=== PATIENT | male | born 1955 | race Caucasian/White ===

== ENCOUNTER 2022-10-30 19:20 | Inpatient (IN) | payer MEDICARE, SELFPAY ==
[2022-10-30 19:25] VITALS: BP 146/71; PULSE 60; RESP 16; TEMP 36.7; O2SAT 97
[2022-10-30] MEDS: traZODone HCL 50 MG TABLET PO (22:18)
[2022-10-30] MEDS: Mirtazapine 30 MG TABLET PO (22:18)
[2022-10-30] MEDS: clonazePAM 1 MG TABLET PO (22:18)
[2022-10-30] MEDS: QUEtiapine Fumarate 25 MG TABLET PO (22:18)
--- NOTE | 2022-10-30 22:37 | PC.ADMIT ---
PT is a 67 year old Emirati speaking white male that arrived on this unit at 19:25 via stretcher from [facility]. PT was placed on 15 minute checks. Legal Status: conditional voluntary. PT presented to [facility] 2 days after leaving [facility]. PT reports feeling increased depression and suicidal ideation and recently relapsed on substances. PT lives with is adult son who is an active substance user and was just sent away on a section 35. PT lost his of 46 years approximately 2 years ago and has been struggling with how to deal with his grief in a healthy manner. PT denies current SI/HI, AH/VH and feels safe on unit. Safety tool and treatment plan completed. VS stable and is exhibiting no signs of substance withdrawal at this time.
[2022-10-31 06:00] VITALS: BP 140/66; PULSE 56; RESP 18; TEMP 36.3; O2SAT 98
[2022-10-31] MEDS: Atorvastatin Calcium 80 MG TABLET PO (09:09)
[2022-10-31] MEDS: Aspirin Enteric Coated 81 MG TABLET.DR PO (09:09)
[2022-10-31] MEDS: buPROPion HCl XL 300 MG TAB.ER.24H PO (09:09)
[2022-10-31] MEDS: lisinopriL 40 MG TABLET PO (09:10)
[2022-10-31] MEDS: clonazePAM 1 MG TABLET PO (09:10)
[2022-10-31 09:29] LABS: Cholesterol 95 mg/dL; HDL Cholesterol 44 mg/dL; LDL Cholesterol Calculated 42 mg/dl; Magnesium 2.3 mg/dL (1.6-2.6); Triglycerides 45 mg/dL
[2022-10-31 09:49] LABS: Folate 12.1 ng/mL (> or = 4.0); Free T4 (Free Thyroxine) 0.79 ng/dL (0.71-1.85); Thyroid Stimulating Hormone 2.26 uIU/mL (0.32-4.0); Vitamin B12 490 pg/mL (200-900)
--- NOTE | 2022-10-31 10:00 | HO.PSYADMNOT ---
HPI Date of Service: 10/31/22 Chief Complaint: Depression, SI, Polysubstance abuse d/o Sources of Information: patient interviewed, chart reviewed and crisis/core team assessment reviewed HPI Subjective Notes: Sánchez Warning and Conditional Voluntary Narrative: pt is a 67 yo , with hx of past substance abuse, depression, Afib (?), who presents for worsening depression in face of relapse and recent 2 year anniversary of wifes . Pt for 47 years and enjoyed a close relationship with his ; he was sober for 32 years, attending AA. Patients 2 years ago and since then he's been depressed, feeling lost without her and having a hard time making plans for future. Pt relapsed with alcohol and then crack cocaine, now mostly daily and fentyl 1/week. Pt went to detox 1.5 weeks ago; when he got out this week, he got home and his son, with severe substance abuse issues, was having a partying at his home, during which time patient again relapsed. His depression worsened and he felt suicidal, called his PCP who encouraged him to present for psych eval. Past Psychiatric History: No inpatient admission hx of detox no hx of suicide attempts meds: Buproprion XL 300mg for about 1 year Mirazapine 30mg for about 1 month Celexa, recently started Seroquel at bedtime Medical Evaluation Reviewed: Hospitalist Halieal Pending [facility] Medical History (Updated 11/01/22 @ 09:05 by Jesu Tadeo MD) Alcohol use disorder in remission BPH (benign prostatic hyperplasia) Cocaine use disorder Erectile dysfunction History of alcohol use disorder History of seizure due to alcohol withdrawal Hyperlipidemia Hypertension Opioid use disorder Paroxysmal atrial fibrillation Polysubstance abuse Family History: son: substance abuse Maternal family: extensive substance abuse Social History: for 47 years; for past 2 years lives in own home 6 children and 7 grandkids; family supportive youngest son currently struggling with substance abuse Substance History: hx of substance abuse, alcoholism, sober for 32 years; relapsed 2 years ago after . Detox September 2022 currently using alcohol (none for 2 weeks), cocaine daily, fentanyl 1/week Trauma History: deferred Diagnostics Vital Signs (24Hr): Vital Signs - 24 hr 10/30/22 19:25 10/31/22 06:00 Temperature 98.1 F 97.4 F Pulse Rate 60 56 Respiratory Rate 16 18 Blood Pressure 146/71 H 140/66 H Pulse Oximetry 97 98 Oxygen Delivery Method Room Air Labs Labs: Laboratory Results - last 48 hr 10/31/22 10/31/22 08:07 08:07 Magnesium 2.3 Triglycerides 45 Cholesterol 95 LDL Cholesterol, Calc 42 HDL Cholesterol 44 Vitamin B12 490 Folate 12.1 TSH 2.26 Free T4 0.79 Meds/Allergies Meds Home Medications Medication Instructions Recorded Confirmed Type aspirin 81 mg tablet,delayed 81 mg PO DAILY 10/30/22 10/30/22 History release atorvastatin 80 mg tablet 80 mg PO QAM 10/30/22 10/30/22 History bupropion HCl 300 mg 24 hr tablet, 300 mg PO QAM 10/30/22 10/30/22 History extended release citalopram 20 mg tablet 20 mg PO DAILY 10/30/22 10/30/22 History clonazepam 1 mg tablet 1 mg PO BID 10/30/22 10/30/22 History lisinopril 40 mg tablet 40 mg PO QAM 10/30/22 10/30/22 History mirtazapine 30 mg tablet 30 mg PO BEDTIME 10/30/22 10/30/22 History quetiapine 25 mg tablet 25 mg PO BEDTIME 10/30/22 10/30/22 History trazodone 50 mg tablet 50 mg PO BEDTIME 10/30/22 10/30/22 History sennosides 8.6 mg tablet (senna) 17.2 mg PO BEDTIME PRN Constipation 10/31/22 10/31/22 History Allergies Allergies Allergy/AdvReac Type Severity Reaction Status Date / Time No Known Allergies Allergy Verified 10/30/22 15:32 Mental Status Exam Mental Status Exam Narrative: Pt is alert and oriented; behavior is cooperative, friendly and calm; patient is not in distress; dressed in hospital attire with unkempt hair, scruffy agudelo; mood is described as depressed and affect congruent; eye contact appropriate; Speech is normal rate, volume and prosody and not pressured; no psychomotor agitation/retardation present; thought process is organized and goal directed; Thought content is on , hopelessness, overcoming addiction, treatment; otherwise pertinent to relevant topics and without any delusional content, paranoid ideations or grandiosity; denies any SI/HI. There is no evidence of perceptual disturbance. Patients insight and judgment impaired Assessment & Plan Assessment & Plan (1) MDD (major depressive disorder), recurrent episode, severe: Status: Acute Code(s): F33.2 - Major depressive disorder, recurrent severe without psychotic features (2) Alcohol use disorder in remission: Status: Acute Code(s): F10.91 - Alcohol use, unspecified, in remission (3) Cocaine use disorder: Status: Acute Code(s): F14.10 - Cocaine abuse, uncomplicated (4) Opioid use disorder: Status: Acute Code(s): F11.90 - Opioid use, unspecified, uncomplicated Plan pt is a 67 yo , with hx of past substance abuse, depression, Afib (?), who presents for worsening depression in face of relapse and recent 2 year anniversary of wifes . -depression and substance abuse -will increase Wellbutrin and dc citalopram (due to polypharm); pt does not want maintenance medication PLAN: CV q15 min checks Increase Wellbutrin XL to 450mg continue Mirtazapine 30mg qhs stop Citalopram; already on 2 antidepressants and not at max doses Lower Clonazepam to 0.5mg TID; discussed how this is problematic for depression and substance abuse; he agrees to lower discussed therapeutic options, such as therapy, AA, bereavement group therapy reviewed labs and lytes, bun/cr, CBC, CA WnL Patient educated on: diagnosis, medication risk/benefits, substance abuse and therapeutic strategies Informed Consent: understands Reason for continued inpatient stay Substantial Risk for: rapid decompensation Statement Statement: I have reviewed the history and physical and performed a pertinent examination on my patient. No changes have occurred unless specified. If the History and Physical was not performed prior to admission, the Hospitalist's service will be consulted for completing the admission physical. Time Spent With Patient Time: Total time managing care of this patient today ____ minutes.
--- NOTE | 2022-10-31 12:08 | HO.PM.IMCN ---
History of Present Illness Data of Consult Service Date: 10/31/22 Requesting physician: Hope Campos Primary Care Provider: Xin WATERS Reason for consult: medical H&P 67 year old male with history hyperlipidemia, hypertension, adrenal nodule, rectal dysfunction, seizure, polysubstance abuse, alcohol use disorder, BPH, paroxysmal atrial fibrillation not on anticoagulation admitted to Psychiatry from [facility] with consult placed hospitalist service for medical H and P. I did attempt to meet with the patient on multiple occasions and patient was unavailable. However, reviewed chart from [facility]. The patient did test positive for cocaine and fentanyl on urine drug screen. There was a mild normocytic anemia with H/H of 10.8/33%. EKG was reassuring showing normal sinus rhythm, rate 67 with incomplete right bundle branch block. Review of Systems Review of Systems: Pt unavailable for review of systems [facility] Medical History (Updated 10/31/22 @ 13:55 by WENDY Greene) BPH (benign prostatic hyperplasia) Erectile dysfunction History of alcohol use disorder History of seizure due to alcohol withdrawal Hyperlipidemia Hypertension Paroxysmal atrial fibrillation Polysubstance abuse Family History (Updated 10/31/22 @ 13:55 by WENDY Greene) Father Alcohol use disorder Social History Household Members: Children Household Members Other:: 1 son Housing: House Do you presently have visiting nurse or other home services: No Patient Tobacco Use Status: Former Tobacco user Quit Date: 1997 Tobacco use type: Cigarette Smoked in Last 30 Days: No e-Cigarette/Vaping Use: Never Used Use of substances other than those prescribed or required for medical reasons: Yes Substance Use Type: Crack/Cocaine, Marijuana and Opiates Substance Use Frequency: Recent Binge Last Used Substance: Just Prior to Admission Currently Displaying Signs/Symptoms of Drug Intoxication Withdrawal: No Any prior treatment program specific to substance use: Yes Have you been hit, kicked, punched, or otherwise hurt by someone within the past year? If so, by whom?: No Do you feel safe in your current relationship?: No Current Relationship Is there a partner from a previous relationship who is making you feel unsafe now?: No Jehovah'S Witness Healthcare Practices: Sikh Advance Directives: No Advance Directives Information Provided: Yes Do you have thoughts of harming others: None Do you have a plan to hurt others: No Plan Recently lost weight without trying: No Nutrition Risks: No Nutritional Risk Meds Allergies Allergy/AdvReac Type Severity Reaction Status Date / Time No Known Allergies Allergy Verified 10/30/22 15:32 Active Medications: Current Medications Acetaminophen (Acetaminophen 325 Mg Tablet) 650 mg PO Q6H PRN PRN Reason: Headache/Pain Mild Scale (1-3) Al Hydroxide/Mg Hydroxide (Magnesium Hydrox/Alum Hydrox 30 Ml Oral.Susp) 30 ml PO Q6H PRN PRN Reason: Heartburn/Nausea Aspirin (Aspirin Enteric Coated 81 Mg Tablet.Dr) 81 mg PO DAILY [facility] Last Admin: 10/31/22 09:09 Dose: 81 mg Atorvastatin Calcium (Atorvastatin Calcium 80 Mg Tablet) 80 mg PO DAILY [facility] Last Admin: 10/31/22 09:09 Dose: 80 mg Bupropion HCl (Bupropion Hcl Xl 150 Mg Tab.Er.24h) 450 mg PO DAILY [facility] Clonazepam (Clonazepam 0.5 Mg Tablet) 0.5 mg PO TID [facility] Hydroxyzine HCl (Hydroxyzine Hcl 25 Mg Tablet) 25 mg PO Q6H PRN PRN Reason: Anxiety Lisinopril (Lisinopril 40 Mg Tablet) 40 mg PO DAILY [facility]; Protocol Last Admin: 10/31/22 09:10 Dose: 40 mg Magnesium Hydroxide (Milk Of Magnesia 30 Ml Oral.Susp) 30 ml PO DAILY PRN PRN Reason: Constipation Mirtazapine (Mirtazapine 30 Mg Tablet) 30 mg PO BEDTIME [facility] Last Admin: 10/30/22 22:18 Dose: 30 mg Trazodone HCl (Trazodone Hcl 50 Mg Tablet) 50 mg PO BEDTIME MRX1 PRN PRN Reason: Insomnia Last Admin: 10/30/22 22:18 Dose: 50 mg Home Medications Medication Instructions Recorded Confirmed Last Taken Type aspirin 81 mg tablet,delayed 81 mg PO DAILY 10/30/22 10/30/22 10/30/22 08:00 History release atorvastatin 80 mg tablet 80 mg PO [facility] 10/30/22 10/30/22 10/30/22 08:00 History 80 bupropion HCl 300 mg 24 hr tablet, 300 mg PO QAM 10/30/22 10/30/22 10/30/22 08:00 History extended release 300 citalopram 20 mg tablet 20 mg PO DAILY 10/30/22 10/30/22 10/30/22 08:00 History 20 mg clonazepam 1 mg tablet 1 mg PO BID 10/30/22 10/30/22 10/30/22 08:00 History 1 lisinopril 40 mg tablet 40 mg PO QAM 10/30/22 10/30/22 10/30/22 08:00 History 40 mirtazapine 30 mg tablet 30 mg PO BEDTIME 10/30/22 10/30/22 10/29/22 22:00 History 30 quetiapine 25 mg tablet 25 mg PO BEDTIME 10/30/22 10/30/22 10/29/22 22:00 History 25 trazodone 50 mg tablet 50 mg PO BEDTIME 10/30/22 10/30/22 10/29/22 22:00 History 50 Physical Exam Vital Signs and Narrative: Vital Signs: Last Vital Signs Temp 97.4 F 10/31/22 06:00 Pulse 56 10/31/22 06:00 Resp 18 10/31/22 06:00 BP 140/66 H 10/31/22 06:00 Pulse Ox 98 10/31/22 06:00 O2 Del Method Room Air 10/30/22 19:25 Pt unavailable for physical exam Results Labs Labs: Laboratory Results - last 24 hr 10/31/22 10/31/22 08:07 08:07 Magnesium 2.3 Triglycerides 45 Cholesterol 95 LDL Cholesterol, Calc 42 HDL Cholesterol 44 Vitamin B12 490 Folate 12.1 TSH 2.26 Free T4 0.79 Assessment and Plan (1) Routine medical exam: Status: Acute Plan 67 year old male with history hyperlipidemia, hypertension, adrenal nodule, erectile dysfunction, seizure, polysubstance abuse, alcohol use disorder, BPH, paroxysmal atrial fibrillation not on anticoagulation admitted to Psychiatry from [facility] with consult placed hospitalist service for medical H and P. #Mood disorder -plan per psychiatry #Polysubstance abuse -plan per psychiatry #Paroxysmal atrial fibrillation- rate controlled -[place] [facility] showed NSR, rate 67 wtih incomplete RBBB -[id number] 2- continue aspirin therapy -Not on rate control medication #HTN -BP reasonably controlled -continue lisinopril 40mg daily -monitor BP #HLD -continue statin #Chronic normocytic anemia -likely r/t chronic disease -H/H stable, above transfusion threshold [facility] chart was reviewed. Multiple attempts made to meet with patient who was unavailable. Thank you for allowing me to participate in this consult. Signing off at this time. Please do not hesitate to call for further questions or if patient does have any medical concerns. Time Spent With Patient Time: Total time managing care of this patient today ____ minutes.
[2022-10-31] MEDS: clonazePAM 0.5 MG TABLET PO ×2 (14:20→21:44)
[2022-10-31 20:56] VITALS: BP 125/62; PULSE 57; RESP 18; TEMP 36.4; O2SAT 97
[2022-10-31] MEDS: Mirtazapine 30 MG TABLET PO (21:44)
[2022-10-31] MEDS: traZODone HCL 50 MG TABLET PO (21:44)
[2022-10-31] MEDS: Sennosides 8.6 MG TABLET 17.2 MG PO (21:44)
[2022-11-01 08:00] VITALS: BP 134/63; PULSE 52; RESP 18; TEMP 35.8; O2SAT 98
[2022-11-01] MEDS: clonazePAM 0.5 MG TABLET PO ×3 (08:45→20:53)
[2022-11-01] MEDS: Atorvastatin Calcium 80 MG TABLET PO (08:46)
[2022-11-01] MEDS: lisinopriL 40 MG TABLET PO (08:46)
[2022-11-01] MEDS: Aspirin Enteric Coated 81 MG TABLET.DR PO (08:46)
[2022-11-01] MEDS: buPROPion HCl XL 150 MG TAB.ER.24H 450 MG PO (08:47)
--- NOTE | 2022-11-01 09:05 | P.PNPSI_ITS ---
Subjective Subjective Date of Service: 11/01/22 Reason For Visit: Depression, SI, Polysubstance abuse d/o Interim History: Met with patient; discussed with team Patient remains depressed, isolating and in bed however expressing gratitude for help received and that he is hopeful that increasing medication will make a difference. Patient did shave today and has improved hygiene. Patient talked about his feelings, the struggle he has had trying to navigate life without his and that he likely relapsed into substance abuse to avoid dealing with actually mourning his . He feels ready to do that now. Patient talked about his need to get back into a AA and be involved with others. He is anxious about his son and is worried his son will return to the house however he his son is currently committed to a Section 35. Patient experiencing some shame for relapse however processing these feelings Mental Status Exam Mental Status Exam Narrative: Pt is alert and oriented; behavior is cooperative, friendly and calm; patient is not in distress; dressed in hospital attire, clean shaven, improved hygiene; mood is described as depressed and affect congruent, downcast; eye contact appropriate; Speech is normal rate, volume and prosody and not pressured; no psychomotor agitation/retardation present; thought process is organized and goal directed; Thought content is on , hopelessness, overcoming addiction, treatment; otherwise pertinent to relevant topics and without any delusional content, paranoid ideations or grandiosity; denies any SI/HI. There is no evidence of perceptual disturbance. Patients insight and judgment impaired but improving. Diagnostics Vital Signs (24Hr): Vital Signs - 24 hr 10/31/22 20:56 Temperature 97.6 F Pulse Rate 57 Respiratory Rate 18 Blood Pressure 125/62 Pulse Oximetry 97 Oxygen Delivery Method Room Air Labs Labs: Laboratory Results - last 48 hr 10/31/22 10/31/22 08:07 08:07 Magnesium 2.3 Triglycerides 45 Cholesterol 95 LDL Cholesterol, Calc 42 HDL Cholesterol 44 Vitamin B12 490 Folate 12.1 TSH 2.26 Free T4 0.79 Medications Medications Current Medications Acetaminophen (Acetaminophen 325 Mg Tablet) 650 mg PO Q6H PRN PRN Reason: Headache/Pain Mild Scale (1-3) Al Hydroxide/Mg Hydroxide (Magnesium Hydrox/Alum Hydrox 30 Ml Oral.Susp) 30 ml PO Q6H PRN PRN Reason: Heartburn/Nausea Aspirin (Aspirin Enteric Coated 81 Mg Tablet.) 81 mg PO DAILY [facility] Last Admin: 11/01/22 08:46 Dose: 81 mg Atorvastatin Calcium (Atorvastatin Calcium 80 Mg Tablet) 80 mg PO DAILY [facility] Last Admin: 11/01/22 08:46 Dose: 80 mg Bupropion HCl (Bupropion Hcl Xl 150 Mg Tab.Er.24h) 450 mg PO DAILY [facility] Last Admin: 11/01/22 08:47 Dose: 450 mg Clonazepam (Clonazepam 0.5 Mg Tablet) 0.5 mg PO TID [facility] Last Admin: 11/01/22 08:45 Dose: 0.5 mg Hydroxyzine HCl (Hydroxyzine Hcl 25 Mg Tablet) 25 mg PO Q6H PRN PRN Reason: Anxiety Lisinopril (Lisinopril 40 Mg Tablet) 40 mg PO DAILY [facility]; Protocol Last Admin: 11/01/22 08:46 Dose: 40 mg Magnesium Hydroxide (Milk Of Magnesia 30 Ml Oral.Susp) 30 ml PO DAILY PRN PRN Reason: Constipation Mirtazapine (Mirtazapine 30 Mg Tablet) 30 mg PO BEDTIME [facility] Last Admin: 10/31/22 21:44 Dose: 30 mg Senna (Sennosides 8.6 Mg Tablet) 17.2 mg PO BEDTIME [facility] Last Admin: 10/31/22 21:44 Dose: 17.2 mg Trazodone HCl (Trazodone Hcl 50 Mg Tablet) 50 mg PO BEDTIME MRX1 PRN PRN Reason: Insomnia Last Admin: 10/31/22 21:44 Dose: 50 mg Allergies Allergies Allergy/AdvReac Type Severity Reaction Status Date / Time No Known Allergies Allergy Verified 10/30/22 15:32 Assessment & Plan Assessment & Plan (1) MDD (major depressive disorder), recurrent episode, severe: Status: Acute Code(s): F33.2 - Major depressive disorder, recurrent severe without psychotic features (2) Alcohol use disorder in remission: Status: Acute Code(s): F10.91 - Alcohol use, unspecified, in remission (3) Cocaine use disorder: Status: Acute Code(s): F14.10 - Cocaine abuse, uncomplicated (4) Opioid use disorder: Status: Acute Code(s): F11.90 - Opioid use, unspecified, uncomplicated Plan pt is a 67 yo , with hx of past substance abuse, depression, Afib (?), who presents for worsening depression in face of relapse and recent 2 year anniversary of wifes . -depression and substance abuse -will increase Wellbutrin and dc citalopram (due to polypharm); pt does not want maintenance medication Hospital course: 11/01 patient remains depressed; appreciates increase in medication. Starting to feel he is finally able to think about his life, missing his and how to move forward. PLAN: CV q15 min checks Continue Wellbutrin XL to 450mg continue Mirtazapine 30mg qhs stop Citalopram; already on 2 antidepressants and not at max doses Lower Clonazepam to 0.5mg TID; discussed how this is problematic for depression and substance abuse; he agrees to lower discussed therapeutic options, such as therapy, AA, bereavement group therapy reviewed labs and lytes, bun/cr, CBC, CA WnL Patient educated on: diagnosis, medication risk/benefits and substance abuse Informed Consent: understands Reason for continued inpatient stay Substantial Risk for: rapid decompensation Time Spent With Patient Time: Total time managing care of this patient today ____ minutes.
[2022-11-01 19:16] VITALS: BP 109/57; PULSE 62; TEMP 36.6
[2022-11-01] MEDS: Sennosides 8.6 MG TABLET 17.2 MG PO (20:53)
[2022-11-01] MEDS: traZODone HCL 50 MG TABLET PO (20:53)
[2022-11-01] MEDS: Mirtazapine 30 MG TABLET PO (20:53)
[2022-11-02 07:00] VITALS: BMI 26.9
[2022-11-02 08:00] VITALS: BP 124/68; PULSE 51; RESP 18; TEMP 36.3; O2SAT 99
[2022-11-02] MEDS: lisinopriL 40 MG TABLET PO (08:49)
[2022-11-02] MEDS: Atorvastatin Calcium 80 MG TABLET PO (08:49)
[2022-11-02] MEDS: clonazePAM 0.5 MG TABLET PO ×3 (08:49→22:06)
[2022-11-02] MEDS: Aspirin Enteric Coated 81 MG TABLET.DR PO (08:50)
[2022-11-02] MEDS: buPROPion HCl XL 150 MG TAB.ER.24H 450 MG PO (08:50)
--- NOTE | 2022-11-02 09:55 | HO.PSYCHPN ---
Subjective Subjective Date of Service: 11/02/22 Reason For Visit: Depression, SI, Polysubstance abuse d/o Interim History: Met with patient; discussed with team Patient feeling little better. Feels that medications are helping and that he is getting back his vision for the future. He did talk to his daughter and his house is all locked up, no one is there and his son remains in a Section 35. Discussed medication and patient agrees to continue lowering clonazepam Mental Status Exam Mental Status Exam Narrative: Pt is alert and oriented; behavior is cooperative, friendly and calm; patient is not in distress; dressed in casual attire, clean shaven, adequate hygiene; mood is described as little better and affect congruent, brighter; eye contact appropriate; Speech is normal rate, volume and prosody and not pressured; no psychomotor agitation/retardation present; thought process is organized and goal directed; Thought content is on , overcoming addiction, treatment; otherwise pertinent to relevant topics and without any delusional content, paranoid ideations or grandiosity; denies any SI/HI. There is no evidence of perceptual disturbance. Patients insight and judgment fair. Diagnostics Vital Signs (24Hr): Vital Signs - 24 hr 11/01/22 19:16 Temperature 97.9 F Pulse Rate 62 Blood Pressure 109/57 L Medications Medications Current Medications Acetaminophen (Acetaminophen 325 Mg Tablet) 650 mg PO Q6H PRN PRN Reason: Headache/Pain Mild Scale (1-3) Al Hydroxide/Mg Hydroxide (Magnesium Hydrox/Alum Hydrox 30 Ml Oral.Susp) 30 ml PO Q6H PRN PRN Reason: Heartburn/Nausea Aspirin (Aspirin Enteric Coated 81 Mg Tablet.) 81 mg PO DAILY [facility] Last Admin: 11/02/22 08:50 Dose: 81 mg Atorvastatin Calcium (Atorvastatin Calcium 80 Mg Tablet) 80 mg PO DAILY [facility] Last Admin: 11/02/22 08:49 Dose: 80 mg Bupropion HCl (Bupropion Hcl Xl 150 Mg Tab.Er.24h) 450 mg PO DAILY [facility] Last Admin: 11/02/22 08:50 Dose: 450 mg Clonazepam (Clonazepam 0.5 Mg Tablet) 0.5 mg PO TID [facility] Last Admin: 11/02/22 08:49 Dose: 0.5 mg Hydroxyzine HCl (Hydroxyzine Hcl 25 Mg Tablet) 25 mg PO Q6H PRN PRN Reason: Anxiety Lisinopril (Lisinopril 40 Mg Tablet) 40 mg PO DAILY [facility]; Protocol Last Admin: 11/02/22 08:49 Dose: 40 mg Magnesium Hydroxide (Milk Of Magnesia 30 Ml Oral.Susp) 30 ml PO DAILY PRN PRN Reason: Constipation Mirtazapine (Mirtazapine 30 Mg Tablet) 30 mg PO BEDTIME [facility] Last Admin: 11/01/22 20:53 Dose: 30 mg Senna (Sennosides 8.6 Mg Tablet) 17.2 mg PO BEDTIME [facility] Last Admin: 11/01/22 20:53 Dose: 17.2 mg Trazodone HCl (Trazodone Hcl 50 Mg Tablet) 50 mg PO BEDTIME MRX1 PRN PRN Reason: Insomnia Last Admin: 11/01/22 20:53 Dose: 50 mg Allergies Allergies Allergy/AdvReac Type Severity Reaction Status Date / Time No Known Allergies Allergy Verified 10/30/22 15:32 Assessment & Plan Assessment & Plan (1) MDD (major depressive disorder), recurrent episode, severe: Status: Acute Code(s): F33.2 - Major depressive disorder, recurrent severe without psychotic features (2) Alcohol use disorder in remission: Status: Acute Code(s): F10.91 - Alcohol use, unspecified, in remission (3) Cocaine use disorder: Status: Acute Code(s): F14.10 - Cocaine abuse, uncomplicated (4) Opioid use disorder: Status: Acute Code(s): F11.90 - Opioid use, unspecified, uncomplicated Plan pt is a 67 yo , with hx of past substance abuse, depression, Afib (?), who presents for worsening depression in face of relapse and recent 2 year anniversary of wifes . -depression and substance abuse -will increase Wellbutrin and dc citalopram (due to polypharm); pt does not want maintenance medication Hospital course: 11/01 patient remains depressed; appreciates increase in medication. Starting to feel he is finally able to think about his life, missing his and how to move forward. 11/02 reports he is feeling a little better, getting back to being future oriented. Here to stay sober. Agrees to further lowering clonazepam. -will lower clonazepam to 0.25 mg t.i.d. (down from 0.5 mg t.i.d.); however can go back up if need be. Otherwise continue current medication regimen PLAN: CV q15 min checks Continue Wellbutrin XL to 450mg continue Mirtazapine 30mg qhs stop Citalopram; already on 2 antidepressants and not at max doses LOWERED TO Clonazepam to 0.25mg TID; (down from 0.5mg TID) discussed how this is problematic for depression and substance abuse; he agrees to lower discussed therapeutic options, such as therapy, AA, bereavement group therapy reviewed labs and lytes, bun/cr, CBC, CA WnL Patient educated on: diagnosis, medication risk/benefits, substance abuse and therapeutic strategies Informed Consent: understands Reason for continued inpatient stay Substantial Risk for: rapid decompensation Time Spent With Patient Time: Total time managing care of this patient today ____ minutes.
[2022-11-02 17:28] VITALS: BP 136/74; PULSE 59; TEMP 36.5; O2SAT 100
[2022-11-02] MEDS: Mirtazapine 30 MG TABLET PO (22:06)
[2022-11-02] MEDS: Sennosides 8.6 MG TABLET 17.2 MG PO (22:06)
[2022-11-03 08:45] VITALS: BP 132/63; PULSE 60; RESP 18; TEMP 36.6; O2SAT 100
[2022-11-03] MEDS: lisinopriL 40 MG TABLET PO (08:47)
[2022-11-03] MEDS: Aspirin Enteric Coated 81 MG TABLET.DR PO (08:48)
[2022-11-03] MEDS: Atorvastatin Calcium 80 MG TABLET PO (08:48)
[2022-11-03] MEDS: clonazePAM 0.5 MG TABLET 0.25 MG PO ×2 (08:48→14:18)
[2022-11-03] MEDS: buPROPion HCl XL 150 MG TAB.ER.24H 450 MG PO (08:48)
--- NOTE | 2022-11-03 09:17 | HO.PSYCHPN ---
Subjective Subjective Date of Service: 11/03/22 Reason For Visit: Depression, SI, Polysubstance abuse d/o Subjective Notes: Conditional Voluntary Interim History: Pt reports he is feeling better. He denies SI/HI. He reports increased commitment to continue substance use treatment. Pt reports his son also struggling with substance use and both using together at his his house. He reports he is ready to continue substance use tx but reports he thinks his son is not and he needs to set boundaries. Pt taking medications as prescribed. no side effects reported or noted. Per nursing, pt isolative but stable. No behavioral concerns. Mental Status Exam Mental Status Exam Narrative: Appearance: casually groomed, good hygine, in NAD Behavior: cooperative Psychomotor: no agitation or retardation noted Speech: clear, normal rate/rhythm/volume, spontaneous TP: linear TC: no signs of psychosis, future oriented looking forward to continue dual dx tx. Mood: okay SI: none HI: none VH/AH: none Delusions: none Insight/judgment: fair x 2. Memory/cog: alert, oriented x 3. grossly intact to conversational testing. Diagnostics Vital Signs (24Hr): Vital Signs - 24 hr 11/02/22 17:28 11/03/22 08:45 Temperature 97.7 F 97.8 F Pulse Rate 59 60 Respiratory Rate 18 Blood Pressure 136/74 132/63 Pulse Oximetry 100 100 Oxygen Delivery Method Room Air Room Air BMI result Body Mass Index 26.9 Medications Medications Current Medications Acetaminophen (Acetaminophen 325 Mg Tablet) 650 mg PO Q6H PRN PRN Reason: Headache/Pain Mild Scale (1-3) Al Hydroxide/Mg Hydroxide (Magnesium Hydrox/Alum Hydrox 30 Ml Oral.Susp) 30 ml PO Q6H PRN PRN Reason: Heartburn/Nausea Aspirin (Aspirin Enteric Coated 81 Mg Tablet.) 81 mg PO DAILY [facility] Last Admin: 11/03/22 08:48 Dose: 81 mg Atorvastatin Calcium (Atorvastatin Calcium 80 Mg Tablet) 80 mg PO DAILY [facility] Last Admin: 11/03/22 08:48 Dose: 80 mg Bupropion HCl (Bupropion Hcl Xl 150 Mg Tab.Er.24h) 450 mg PO DAILY [facility] Last Admin: 11/03/22 08:48 Dose: 450 mg Clonazepam (Clonazepam 0.5 Mg Tablet) 0.25 mg PO TID [facility] Last Admin: 07/21/23 08:48 Dose: 0.25 mg Hydroxyzine HCl (Hydroxyzine Hcl 25 Mg Tablet) 25 mg PO Q6H PRN PRN Reason: Anxiety Lisinopril (Lisinopril 40 Mg Tablet) 40 mg PO DAILY [facility]; Protocol Last Admin: 11/03/22 08:47 Dose: 40 mg Magnesium Hydroxide (Milk Of Magnesia 30 Ml Oral.Susp) 30 ml PO DAILY PRN PRN Reason: Constipation Mirtazapine (Mirtazapine 30 Mg Tablet) 30 mg PO BEDTIME [facility] Last Admin: 11/02/22 22:06 Dose: 30 mg Senna (Sennosides 8.6 Mg Tablet) 17.2 mg PO BEDTIME [facility] Last Admin: 11/02/22 22:06 Dose: 17.2 mg Trazodone HCl (Trazodone Hcl 50 Mg Tablet) 50 mg PO BEDTIME MRX1 PRN PRN Reason: Insomnia Last Admin: 11/01/22 20:53 Dose: 50 mg Allergies Allergies Allergy/AdvReac Type Severity Reaction Status Date / Time No Known Allergies Allergy Verified 10/30/22 15:32 Assessment & Plan Assessment & Plan (1) MDD (major depressive disorder), recurrent episode, severe: Status: Acute Code(s): F33.2 - Major depressive disorder, recurrent severe without psychotic features (2) Alcohol use disorder in remission: Status: Acute Code(s): F10.91 - Alcohol use, unspecified, in remission (3) Cocaine use disorder: Status: Acute Code(s): F14.10 - Cocaine abuse, uncomplicated (4) Opioid use disorder: Status: Acute Code(s): F11.90 - Opioid use, unspecified, uncomplicated Plan pt is a 67 yo , with hx of past substance abuse, depression, Afib (?), who presents for worsening depression in face of relapse and recent 2 year anniversary of wifes . -depression and substance abuse -will increase Wellbutrin and dc citalopram (due to polypharm); pt does not want maintenance medication Hospital course: 11/01 patient remains depressed; appreciates increase in medication. Starting to feel he is finally able to think about his life, missing his and how to move forward. 11/02 reports he is feeling a little better, getting back to being future oriented. Here to stay sober. Agrees to further lowering clonazepam. -will lower clonazepam to 0.25 mg t.i.d. (down from 0.5 mg t.i.d.); however can go back up if need be. Otherwise continue current medication regimen 11/03 continue tx. PLAN: CV q15 min checks Continue Wellbutrin XL to 450mg continue Mirtazapine 30mg qhs stop Citalopram; already on 2 antidepressants and not at max doses LOWERED TO Clonazepam to 0.25mg TID; (down from 0.5mg TID) discussed how this is problematic for depression and substance abuse; he agrees to lower discussed therapeutic options, such as therapy, AA, bereavement group therapy reviewed labs and lytes, bun/cr, CBC, CA WnL Reason for continued inpatient stay Substantial Risk for: inability to function Time Spent With Patient Time: Total time managing care of this patient today ____ minutes.
[2022-11-03] MEDS: clonazePAM 0.5 MG TABLET PO ×2 (15:28→20:54)
[2022-11-03 18:00] VITALS: BP 136/69; PULSE 57; RESP 18; TEMP 36.5; O2SAT 99
[2022-11-03] MEDS: Mirtazapine 30 MG TABLET PO (20:54)
[2022-11-03] MEDS: traZODone HCL 50 MG TABLET PO (20:54)
[2022-11-03] MEDS: Sennosides 8.6 MG TABLET 17.2 MG PO (20:54)
[2022-11-04 08:45] VITALS: BP 146/75; PULSE 59; RESP 18; TEMP 36.8; O2SAT 99
[2022-11-04] MEDS: lisinopriL 40 MG TABLET PO (08:49)
[2022-11-04] MEDS: clonazePAM 0.5 MG TABLET PO ×3 (08:49→20:54)
[2022-11-04] MEDS: Atorvastatin Calcium 80 MG TABLET PO (08:49)
[2022-11-04] MEDS: buPROPion HCl XL 150 MG TAB.ER.24H 450 MG PO (08:49)
[2022-11-04] MEDS: Aspirin Enteric Coated 81 MG TABLET.DR PO (08:49)
[2022-11-04] MEDS: Milk of Magnesia 30 ML ORAL.SUSP PO (13:21)
--- NOTE | 2022-11-04 14:44 | HO.PSYCHPN ---
Subjective Subjective Date of Service: 11/04/22 Reason For Visit: Depression, SI, Polysubstance abuse d/o Interim History: Patient seen and discussed. Pt reports he is feeling better. He denies SI/HI. He is asking for discharge mid week. He reports increased commitment to continue substance use treatment. Pt taking medications as prescribed. no side effects reported or noted. Per nursing, pt isolative but stable. No behavioral concerns. Review of Systems Review of Systems Pt unavailable for review of systems Mental Status Exam Mental Status Exam Narrative: Appearance: casually groomed, good hygine, in NAD Behavior: cooperative Psychomotor: no agitation or retardation noted Speech: clear, normal rate/rhythm/volume, spontaneous TP: linear TC: no signs of psychosis, future oriented looking forward to continue dual dx tx. Mood: okay SI: none HI: none VH/AH: none Delusions: none Insight/judgment: fair x 2. Memory/cog: alert, oriented x 3. grossly intact to conversational testing. Diagnostics Vital Signs (24Hr): Vital Signs - 24 hr 11/03/22 18:00 11/04/22 08:45 Temperature 97.7 F 98.2 F Pulse Rate 57 59 Respiratory Rate 18 18 Blood Pressure 136/69 146/75 H Pulse Oximetry 99 99 Oxygen Delivery Method Room Air Room Air BMI result Body Mass Index 26.9 Medications Medications Current Medications Acetaminophen (Acetaminophen 325 Mg Tablet) 650 mg PO Q6H PRN PRN Reason: Headache/Pain Mild Scale (1-3) Al Hydroxide/Mg Hydroxide (Magnesium Hydrox/Alum Hydrox 30 Ml Oral.Susp) 30 ml PO Q6H PRN PRN Reason: Heartburn/Nausea Aspirin (Aspirin Enteric Coated 81 Mg Tablet.) 81 mg PO DAILY [facility] Last Admin: 11/04/22 08:49 Dose: 81 mg Atorvastatin Calcium (Atorvastatin Calcium 80 Mg Tablet) 80 mg PO DAILY [facility] Last Admin: 11/04/22 08:49 Dose: 80 mg Bupropion HCl (Bupropion Hcl Xl 150 Mg Tab.Er.24h) 450 mg PO DAILY [facility] Last Admin: 11/04/22 08:49 Dose: 450 mg Clonazepam (Clonazepam 0.5 Mg Tablet) 0.5 mg PO TID [facility] Last Admin: 11/04/22 14:09 Dose: 0.5 mg Hydroxyzine HCl (Hydroxyzine Hcl 25 Mg Tablet) 25 mg PO Q6H PRN PRN Reason: Anxiety Lisinopril (Lisinopril 40 Mg Tablet) 40 mg PO DAILY [facility]; Protocol Last Admin: 11/04/22 08:49 Dose: 40 mg Magnesium Hydroxide (Milk Of Magnesia 30 Ml Oral.Susp) 30 ml PO DAILY PRN PRN Reason: Constipation Last Admin: 11/04/22 13:21 Dose: 30 ml Mirtazapine (Mirtazapine 30 Mg Tablet) 30 mg PO BEDTIME [facility] Last Admin: 11/03/22 20:54 Dose: 30 mg Senna (Sennosides 8.6 Mg Tablet) 17.2 mg PO BEDTIME [facility] Last Admin: 11/03/22 20:54 Dose: 17.2 mg Trazodone HCl (Trazodone Hcl 50 Mg Tablet) 50 mg PO BEDTIME MRX1 PRN PRN Reason: Insomnia Last Admin: 11/03/22 20:54 Dose: 50 mg Allergies Allergies Allergy/AdvReac Type Severity Reaction Status Date / Time No Known Allergies Allergy Verified 10/30/22 15:32 Assessment & Plan Assessment & Plan (1) MDD (major depressive disorder), recurrent episode, severe: Status: Acute Code(s): F33.2 - Major depressive disorder, recurrent severe without psychotic features (2) Alcohol use disorder in remission: Status: Acute Code(s): F10.91 - Alcohol use, unspecified, in remission (3) Cocaine use disorder: Status: Acute Code(s): F14.10 - Cocaine abuse, uncomplicated (4) Opioid use disorder: Status: Acute Code(s): F11.90 - Opioid use, unspecified, uncomplicated Plan pt is a 67 yo , with hx of past substance abuse, depression, Afib (?), who presents for worsening depression in face of relapse and recent 2 year anniversary of wifes . -depression and substance abuse -will increase Wellbutrin and dc citalopram (due to polypharm); pt does not want maintenance medication Hospital course: 11/01 patient remains depressed; appreciates increase in medication. Starting to feel he is finally able to think about his life, missing his and how to move forward. 11/02 reports he is feeling a little better, getting back to being future oriented. Here to stay sober. Agrees to further lowering clonazepam. -will lower clonazepam to 0.25 mg t.i.d. (down from 0.5 mg t.i.d.); however can go back up if need be. Otherwise continue current medication regimen 11/03 continue tx. 11/04: Continue current treatment. Requesting DC mid week. PLAN: CV q15 min checks Continue Wellbutrin XL to 450mg continue Mirtazapine 30mg qhs stop Citalopram; already on 2 antidepressants and not at max doses LOWERED TO Clonazepam to 0.25mg TID; (down from 0.5mg TID) discussed how this is problematic for depression and substance abuse; he agrees to lower discussed therapeutic options, such as therapy, AA, bereavement group therapy reviewed labs and lytes, bun/cr, CBC, CA WnL Reason for continued inpatient stay Substantial Risk for: harm to self and rapid decompensation Time Spent With Patient Time: Total time managing care of this patient today ____ minutes.
[2022-11-04 18:49] VITALS: BP 141/68; PULSE 64; TEMP 36.6
[2022-11-04] MEDS: Sennosides 8.6 MG TABLET 17.2 MG PO (20:54)
[2022-11-04] MEDS: Mirtazapine 30 MG TABLET PO (20:54)
[2022-11-04] MEDS: traZODone HCL 50 MG TABLET PO (20:54)
[2022-11-04] MEDS: Acetaminophen 325 MG TABLET 650 MG PO (20:54)
[2022-11-05] MEDS: Atorvastatin Calcium 80 MG TABLET PO (08:20)
[2022-11-05] MEDS: buPROPion HCl XL 150 MG TAB.ER.24H 450 MG PO (08:20)
[2022-11-05] MEDS: lisinopriL 40 MG TABLET PO (08:20)
[2022-11-05] MEDS: Aspirin Enteric Coated 81 MG TABLET.DR PO (08:20)
[2022-11-05] MEDS: clonazePAM 0.5 MG TABLET PO ×3 (08:20→20:38)
[2022-11-05 08:30] VITALS: BP 110/61; PULSE 59; RESP 18; TEMP 36.1; O2SAT 99
--- NOTE | 2022-11-05 10:50 | HO.PSYCHPN ---
Subjective Subjective Date of Service: 11/05/22 Reason For Visit: Depression, SI, Polysubstance abuse d/o Interim History: Patient seen and discussed. Reports he had constipation last night and resolved. Pt reports he is feeling well today. He denies SI/HI. He is asking for discharge mid week. He reports increased commitment to continue substance use treatment. Pt taking medications as prescribed. no side effects reported or noted. Per nursing, pt isolating but stable. No behavioral concerns. Review of Systems Review of Systems Pt unavailable for review of systems Mental Status Exam Mental Status Exam Narrative: Appearance: casually groomed, good hygine, in NAD Behavior: cooperative Psychomotor: no agitation or retardation noted Speech: clear, normal rate/rhythm/volume, spontaneous TP: linear TC: no signs of psychosis, future oriented looking forward to continue dual dx tx. Mood: okay SI: none HI: none VH/AH: none Delusions: none Insight/judgment: fair x 2. Memory/cog: alert, oriented x 3. grossly intact to conversational testing. Diagnostics Vital Signs (24Hr): Vital Signs - 24 hr 11/04/22 18:49 11/05/22 08:30 Temperature 97.9 F 97.0 F Pulse Rate 64 59 Respiratory Rate 18 Blood Pressure 141/68 H 110/61 Pulse Oximetry 99 Oxygen Delivery Method Room Air BMI result Body Mass Index 26.9 Medications Medications Current Medications Acetaminophen (Acetaminophen 325 Mg Tablet) 650 mg PO Q6H PRN PRN Reason: Headache/Pain Mild Scale (1-3) Last Admin: 11/04/22 20:54 Dose: 650 mg Al Hydroxide/Mg Hydroxide (Magnesium Hydrox/Alum Hydrox 30 Ml Oral.Susp) 30 ml PO Q6H PRN PRN Reason: Heartburn/Nausea Aspirin (Aspirin Enteric Coated 81 Mg Tablet.) 81 mg PO DAILY [facility] Last Admin: 11/05/22 08:20 Dose: 81 mg Atorvastatin Calcium (Atorvastatin Calcium 80 Mg Tablet) 80 mg PO DAILY [facility] Last Admin: 11/05/22 08:20 Dose: 80 mg Bupropion HCl (Bupropion Hcl Xl 150 Mg Tab.Er.24h) 450 mg PO DAILY [facility] Last Admin: 11/05/22 08:20 Dose: 450 mg Clonazepam (Clonazepam 0.5 Mg Tablet) 0.5 mg PO TID [facility] Last Admin: 11/05/22 08:20 Dose: 0.5 mg Hydroxyzine HCl (Hydroxyzine Hcl 25 Mg Tablet) 25 mg PO Q6H PRN PRN Reason: Anxiety Lisinopril (Lisinopril 40 Mg Tablet) 40 mg PO DAILY [facility]; Protocol Last Admin: 11/05/22 08:20 Dose: 40 mg Magnesium Hydroxide (Milk Of Magnesia 30 Ml Oral.Susp) 30 ml PO DAILY PRN PRN Reason: Constipation Last Admin: 11/04/22 13:21 Dose: 30 ml Mirtazapine (Mirtazapine 30 Mg Tablet) 30 mg PO BEDTIME [facility] Last Admin: 11/04/22 20:54 Dose: 30 mg Polyethylene Glycol (Polyethylene Glycol 3350 17 Gm Powd.Pack) 17 gm PO DAILY PRN PRN Reason: constipation not responsive Senna (Sennosides 8.6 Mg Tablet) 17.2 mg PO BEDTIME [facility] Last Admin: 11/04/22 20:54 Dose: 17.2 mg Trazodone HCl (Trazodone Hcl 50 Mg Tablet) 50 mg PO BEDTIME MRX1 PRN PRN Reason: Insomnia Last Admin: 11/04/22 20:54 Dose: 50 mg Allergies Allergies Allergy/AdvReac Type Severity Reaction Status Date / Time No Known Allergies Allergy Verified 10/30/22 15:32 Assessment & Plan Assessment & Plan (1) MDD (major depressive disorder), recurrent episode, severe: Status: Acute Code(s): F33.2 - Major depressive disorder, recurrent severe without psychotic features (2) Alcohol use disorder in remission: Status: Acute Code(s): F10.91 - Alcohol use, unspecified, in remission (3) Cocaine use disorder: Status: Acute Code(s): F14.10 - Cocaine abuse, uncomplicated (4) Opioid use disorder: Status: Acute Code(s): F11.90 - Opioid use, unspecified, uncomplicated Plan pt is a 67 yo , with hx of past substance abuse, depression, Afib (?), who presents for worsening depression in face of relapse and recent 2 year anniversary of wifes . -depression and substance abuse -will increase Wellbutrin and dc citalopram (due to polypharm); pt does not want maintenance medication Hospital course: 11/01 patient remains depressed; appreciates increase in medication. Starting to feel he is finally able to think about his life, missing his and how to move forward. 11/02 reports he is feeling a little better, getting back to being future oriented. Here to stay sober. Agrees to further lowering clonazepam. -will lower clonazepam to 0.25 mg t.i.d. (down from 0.5 mg t.i.d.); however can go back up if need be. Otherwise continue current medication regimen 11/03 continue tx. 11/04: Continue current treatment. Requesting DC mid week. 11/05: Continue current treatment. Requesting DC mid week. PLAN: CV q15 min checks Continue Wellbutrin XL to 450mg continue Mirtazapine 30mg qhs stop Citalopram; already on 2 antidepressants and not at max doses LOWERED TO Clonazepam to 0.25mg TID; (down from 0.5mg TID) discussed how this is problematic for depression and substance abuse; he agrees to lower discussed therapeutic options, such as therapy, AA, bereavement group therapy reviewed labs and lytes, bun/cr, CBC, CA WnL Reason for continued inpatient stay Substantial Risk for: inability to function and rapid decompensation Time Spent With Patient Time: Total time managing care of this patient today ____ minutes.
[2022-11-05 20:35] VITALS: BP 133/67; PULSE 63; RESP 18; TEMP 36.8
[2022-11-05] MEDS: Mirtazapine 30 MG TABLET PO (20:38)
[2022-11-05] MEDS: traZODone HCL 50 MG TABLET PO (20:38)
[2022-11-05] MEDS: Sennosides 8.6 MG TABLET 17.2 MG PO (20:38)
[2022-11-06] MEDS: clonazePAM 0.5 MG TABLET PO ×3 (08:26→22:15)
[2022-11-06] MEDS: buPROPion HCl XL 150 MG TAB.ER.24H 450 MG PO (08:26)
[2022-11-06] MEDS: lisinopriL 40 MG TABLET PO (08:26)
[2022-11-06] MEDS: Atorvastatin Calcium 80 MG TABLET PO (08:26)
[2022-11-06] MEDS: Aspirin Enteric Coated 81 MG TABLET.DR PO (08:27)
[2022-11-06 09:00] VITALS: BP 128/61; PULSE 54; RESP 16; TEMP 36.4; O2SAT 98
--- NOTE | 2022-11-06 09:01 | HO.PSYCHPN ---
Subjective Subjective Date of Service: 11/06/22 Reason For Visit: Depression, SI, Polysubstance abuse d/o Interim History: Met with Patient; discussed with team; reviewed progress notes Patient reports he is overall feeling much better, depression mostly resolved. He still anxious about returning home and dealing with numerous issues he has to face including legal issues, son struggling with substance abuse and his own battles with loneliness. Discussed therapy, AA groups.., Patient shared about his plans for dealing with each of these issues and is optimistic he will get through them; plans to start therapy as well.. Patient very much wants to stay sober hand discussed going to a meeting on the day of discharge. Again discussed maintenance medication and patient wants to rely on intermittently taking Suboxone which he already has a script for; considering getting on subliCade with providers back home. No medication side effects. Patient reported that he had some cramping in his bilateral legs this morning; discussed medications, atorvastatin; ordered labs, BUN/creatinine WNL Mental Status Exam Mental Status Exam Narrative: Pt is alert and oriented; behavior is cooperative, friendly and calm; patient is not in distress; dressed in casual attire, clean shaven, adequate hygiene; mood is described as better and affect congruent, brighter; eye contact appropriate; Speech is normal rate, volume and prosody and not pressured; no psychomotor agitation/retardation present; thought process is organized and goal directed; Thought content is on , overcoming addiction, treatment; otherwise pertinent to relevant topics and without any delusional content, paranoid ideations or grandiosity; denies any SI/HI. There is no evidence of perceptual disturbance. Patients insight and judgment fair. Diagnostics Vital Signs (24Hr): Vital Signs - 24 hr 11/05/22 20:35 Temperature 98.3 F Pulse Rate 63 Respiratory Rate 18 Blood Pressure 133/67 BMI result Body Mass Index 26.9 Labs 11/06/22 14:31 Medications Medications Current Medications Acetaminophen (Acetaminophen 325 Mg Tablet) 650 mg PO Q6H PRN PRN Reason: Headache/Pain Mild Scale (1-3) Last Admin: 11/04/22 20:54 Dose: 650 mg Al Hydroxide/Mg Hydroxide (Magnesium Hydrox/Alum Hydrox 30 Ml Oral.Susp) 30 ml PO Q6H PRN PRN Reason: Heartburn/Nausea Aspirin (Aspirin Enteric Coated 81 Mg Tablet.Dr) 81 mg PO DAILY [facility] Last Admin: 11/06/22 08:27 Dose: 81 mg Atorvastatin Calcium (Atorvastatin Calcium 80 Mg Tablet) 80 mg PO DAILY [facility] Last Admin: 11/06/22 08:26 Dose: 80 mg Bupropion HCl (Bupropion Hcl Xl 150 Mg Tab.Er.24h) 450 mg PO DAILY [facility] Last Admin: 11/06/22 08:26 Dose: 450 mg Clonazepam (Clonazepam 0.5 Mg Tablet) 0.5 mg PO TID [facility] Last Admin: 11/06/22 08:26 Dose: 0.5 mg Hydroxyzine HCl (Hydroxyzine Hcl 25 Mg Tablet) 25 mg PO Q6H PRN PRN Reason: Anxiety Lisinopril (Lisinopril 40 Mg Tablet) 40 mg PO DAILY [facility]; Protocol Last Admin: 11/06/22 08:26 Dose: 40 mg Magnesium Hydroxide (Milk Of Magnesia 30 Ml Oral.Susp) 30 ml PO DAILY PRN PRN Reason: Constipation Last Admin: 11/04/22 13:21 Dose: 30 ml Mirtazapine (Mirtazapine 30 Mg Tablet) 30 mg PO BEDTIME [facility] Last Admin: 11/05/22 20:38 Dose: 30 mg Polyethylene Glycol (Polyethylene Glycol 3350 17 Gm Powd.Pack) 17 gm PO DAILY PRN PRN Reason: constipation not responsive Senna (Sennosides 8.6 Mg Tablet) 17.2 mg PO BEDTIME [facility] Last Admin: 11/05/22 20:38 Dose: 17.2 mg Trazodone HCl (Trazodone Hcl 50 Mg Tablet) 50 mg PO BEDTIME MRX1 PRN PRN Reason: Insomnia Last Admin: 11/05/22 20:38 Dose: 50 mg Allergies Allergies Allergy/AdvReac Type Severity Reaction Status Date / Time No Known Allergies Allergy Verified 10/30/22 15:32 Assessment & Plan Assessment & Plan (1) MDD (major depressive disorder), recurrent episode, severe: Status: Acute Code(s): F33.2 - Major depressive disorder, recurrent severe without psychotic features (2) Alcohol use disorder in remission: Status: Acute Code(s): F10.91 - Alcohol use, unspecified, in remission (3) Cocaine use disorder: Status: Acute Code(s): F14.10 - Cocaine abuse, uncomplicated (4) Opioid use disorder: Status: Acute Code(s): F11.90 - Opioid use, unspecified, uncomplicated Plan pt is a 67 yo , with hx of past substance abuse, depression, Afib (?), who presents for worsening depression in face of relapse and recent 2 year anniversary of wifes . -depression and substance abuse -will increase Wellbutrin and dc citalopram (due to polypharm); pt does not want maintenance medication Hospital course: 11/01 patient remains depressed; appreciates increase in medication. Starting to feel he is finally able to think about his life, missing his and how to move forward. 11/02 reports he is feeling a little better, getting back to being future oriented. Here to stay sober. Agrees to further lowering clonazepam. -will lower clonazepam to 0.25 mg t.i.d. (down from 0.5 mg t.i.d.); however can go back up if need be. Otherwise continue current medication regimen 11/03 continue tx. 11/04: Continue current treatment. Requesting DC mid week. 11/05: Continue current treatment. Requesting DC mid week. 11/06 patient remains stable, good mood, dealing with anxiety, optimistic; safe and not in imminent risk for harm to self or others. Appropriate for discharge PLAN: CV q15 min checks Continue Wellbutrin XL to 450mg continue Mirtazapine 30mg qhs stop Citalopram; already on 2 antidepressants and not at max doses Clonazepam to 0.5mg TID; (down from 0.5mg TID) discussed how this is problematic for depression and substance abuse; he agrees to lower discussed therapeutic options, such as therapy, AA, bereavement group therapy reviewed labs and lytes, bun/cr, CBC, CA WnL Patient educated on: diagnosis, medication risk/benefits, substance abuse and therapeutic strategies Informed Consent: understands Reason for continued inpatient stay Substantial Risk for: stable for discharge Time Spent With Patient Time: Total time managing care of this patient today ____ minutes.
[2022-11-06 14:52] LABS: Anion Gap 10 (12-20); Blood Urea Nitrogen 14 mg/dL (9-16); Calcium 9.8 mg/dL (8.4-10.2); Carbon Dioxide 31 mmol/L (22-29); Chloride 103 mmol/L (96-108); Creatinine Clr Calc Pharmacy 67.1; Estimated Glomerular Filt Rate > 60; Glucose Random 95 mg/dL (60-115); Sodium 139 mmol/L (135-145)
[2022-11-06 22:00] VITALS: BP 115/59; PULSE 65; TEMP 36.4; O2SAT 98
[2022-11-06] MEDS: Sennosides 8.6 MG TABLET 17.2 MG PO (22:14)
[2022-11-06] MEDS: Mirtazapine 30 MG TABLET PO (22:14)
[2022-11-06] MEDS: traZODone HCL 50 MG TABLET PO (22:27)
[2022-11-07 06:00] VITALS: BP 116/66; PULSE 51; RESP 16; TEMP 36.7; O2SAT 98
[2022-11-07] MEDS: Atorvastatin Calcium 80 MG TABLET PO (09:05)
[2022-11-07] MEDS: clonazePAM 0.5 MG TABLET PO (09:05)
[2022-11-07] MEDS: buPROPion HCl XL 150 MG TAB.ER.24H 450 MG PO (09:05)
[2022-11-07] MEDS: lisinopriL 40 MG TABLET PO (09:06)
[2022-11-07] MEDS: Aspirin Enteric Coated 81 MG TABLET.DR PO (09:06)
--- NOTE | 2022-11-07 09:38 | PM.PSYDC ---
DS: Providers Provider Date of Service: 11/07/22 Date of admission: 10/30/22 19:20 Date of discharge: 11/07/22 Primary care physician: Xin Artis Attending physician on admission: Jesu Tadeo Consults: 10/30/22 15:33 Consult to Hospitalist Routine Comment: Consulting Provider: Hospitalist Reason For Exam: [place] [facility] [place] physician on discharge: Jesu Tadeo DS: Diagnosis Discharge Diagnosis (1) MDD (major depressive disorder), recurrent episode, severe: Status: Acute (2) Alcohol use disorder in remission: Status: Acute (3) Cocaine use disorder: Status: Acute (4) Opioid use disorder: Status: Acute DS: Medications Discharge Medications Home Medications: Home Medications Medication Instructions Recorded Confirmed aspirin 81 mg tablet,delayed 81 mg PO DAILY 10/30/22 10/30/22 release Previous Rx's Medication Instructions Recorded atorvastatin 80 mg tablet 80 mg PO QAM 30 days #30 tabs 11/07/22 bupropion HCl 150 mg 24 hr tablet, 150 mg PO DAILY 30 days #30 tabs 11/07/22 extended release bupropion HCl 300 mg 24 hr tablet, 300 mg PO QAM 30 days #30 tabs 11/07/22 extended release clonazepam 0.5 mg tablet 0.5 mg PO TID PRN anxiety 30 days 11/07/22 #90 tabs lisinopril 40 mg tablet 40 mg PO QAM 30 days #30 tabs 11/07/22 mirtazapine 30 mg tablet 30 mg PO BEDTIME 30 days #30 tabs 11/07/22 sennosides 8.6 mg tablet (senna) 17.2 mg PO BEDTIME PRN 11/07/22 Constipation 30 days #60 tabs trazodone 50 mg tablet 50 mg PO BEDTIME PRN insomnia 30 11/07/22 days #30 tabs Mental Status Exam Mental Status Exam Narrative: Pt is alert and oriented; behavior is cooperative, friendly and calm; patient is not in distress; dressed in casual attire, clean shaven, adequate hygiene; mood is described as better and affect congruent, brighter; eye contact appropriate; Speech is normal rate, volume and prosody and not pressured; no psychomotor agitation/retardation present; thought process is organized and goal directed; Thought content is on , overcoming addiction, treatment; otherwise pertinent to relevant topics and without any delusional content, paranoid ideations or grandiosity; denies any SI/HI. There is no evidence of perceptual disturbance. Patients insight and judgment fair. Data Data Completed and Pending Completed studies during hospitalization [Text1]: 10/31/22 10/31/22 11/06/22 08:07 08:07 14:31 Sodium 139 Potassium 5.0 Chloride 103 Carbon Dioxide 31 H Anion Gap 10 L BUN 14 Creatinine 0.95 Estim Creat Clear Calc 67.1 Estimated GFR > 60 Random Glucose 95 Calcium 9.8 Vitamin B12 490 Folate 12.1 TSH 2.26 Free T4 0.79 DS: Summary Hospital Course Hospital Course: pt is a 67 yo , with hx of past substance abuse, depression, Afib (?), who presents for worsening depression in face of relapse and recent 2 year anniversary of wifes . -depression and substance abuse Patient patient was depressed but no SI at all. His Wellbutrin was increased; mirtazapine continued (and due to unnecessary polypharmacy, Celexa was discontinued). Patient did well unit, depression subsiding and renewal of hopeful about the future. Patient felt strongly that commitment to sobriety is once again most important thing for him to achieve an order to remain stable, something he enjoyed for over 30 years and wants to get back to. Patient started reviewing sober contacts that he will get in touch with and agreed to start going back to meetings. Patient also wanted help starting 1 on 1 therapy as an outpatient to help him with the grieving process of his . Patient remained in good behavioral and impulse control throughout his stay on the unit. He was forthcoming in 1 on 1 sessions, sharing about aspects of his life, as relationship with his and how he plans to move forward; he was appropriate with peers and staff, engaged in therapy, attending groups and invested in treatment. Maintenance medications were discussed however patient wants to remain on p.r.n. Suboxone that he already gets from an outpatient provider. Patient discussed and understood the risks of clonazepam, a home medication and willingly reduced his overall available dose; writer producer tried to taper further however patient's anxiety flared and writer producer found it to be too much to completely taper and discontinue during this admission; patient reports he plans to further taper and dc over time with outpatient provider. It was discussed and Patient is well aware of his vulnerability towards relapse and how substance abuse keeps him in a depressed cycle and unable to fully grieved and process his 's . Patient felt ready to return home and continue treatment as an outpatient. He enjoys the support of his family and has outpatient appointments pending. Patient is not in imminent risk for harm to self or others and appropriate to return to the community for continued treatment. Request for discharge honored. Time spent discussing smoking cessation with patient: 3 to 10 minutes Status at Discharge Functional status at discharge: independent ambulation Overall status at discharge: patient is back to baseline Time Spent with Patient Time attestation: Total time managing care of this patient today ____ minutes. Time spent: Less than 30 minutes Discharge Plan Discharge Anticipated Discharge Date/Time: 11/07/22 11:00 Patient Disposition: Home, Self-Care Discharge Diagnosis: MDD, recurrent, severe in partial remission Referrals: Xin Marte [Primary Care Provider] - 11/23/22 3:00 pm (in office) Discharge Medications: New bupropion HCl 150 mg Tablet Extended Release 24 Hr 150 mg PO DAILY 30 Days Qty: 30 1RF Rx Instructions: take with 300mg tab clonazepam 0.5 mg Tablet 0.5 mg PO TID PRN (Reason: anxiety) 30 Days Qty: 90 0RF Continued aspirin 81 mg tablet,delayed release (DR/EC) 81 mg PO DAILY atorvastatin 80 mg tablet 80 mg PO QAM 30 Days Qty: 30 0RF sennosides [senna] 8.6 mg tablet 17.2 mg PO BEDTIME PRN (Reason: Constipation) 30 Days Qty: 60 0RF mirtazapine 30 mg tablet 30 mg PO BEDTIME 30 Days Qty: 30 1RF lisinopril 40 mg tablet 40 mg PO QAM 30 Days Qty: 30 0RF bupropion HCl 300 mg tablet extended release 24 hr 300 mg PO QAM 30 Days Qty: 30 1RF Rx Instructions: take with 150mg tab Changed trazodone 50 mg tablet 50 mg PO BEDTIME PRN (Reason: insomnia) 30 Days Qty: 30 1RF Discontinued quetiapine 25 mg tablet 25 mg PO BEDTIME clonazepam 1 mg tablet 1 mg PO BID citalopram 20 mg tablet 20 mg PO DAILY Discharge Orders: Discharge Order (Routine); Ordered 11/07/22 Ordered By: Jesu Tadeo Diet: Regular diet Activity on Discharge: As tolerated Stand Alone Forms: Patient Portal Discharge page Care Plan Goals: Maintain mood and safe behaviors Take medications as prescribed Continue to pursue sobriety Practice coping skills Continue with outpatient providers and reach out to them as needed Health Concerns: Mood stability and behaviors Sobriety Hypertension High Cholesterol Plan of Treatment: Follow up with your PCP, psychiatric provider and other outpatient providers regarding above concerns Take medications as prescribed Assessment: Risk assessment at time of discharge:? Patient was interviewed prior to discharge and found to be fully oriented and without any SI or HI. Patient has insight and demonstrates good judgment in terms of wanting to pursue treatment. Patient is not in imminent risk of harm to self or others and has a safety plan that includes presenting to the closest ER or calling 911 if feeling unsafe.? Patient has been observed closely by nursing and unit staff throughout admission; patient has not engaged in any behaviors that suggest dangerousness to self or others and has demonstrated appropriate behaviors and impulse control
== END 2022-11-07 11:50 | disposition home or self-care (01) | DRG 885 ==
PROVIDERS: Clinical Nurse Specialist Psychiatric/Mental Health, Adult; Admitting Provider Psychiatry & Neurology Psychiatry; Visit Provider Psychiatry & Neurology Psychiatry
DX: F33.2 Major depressive disorder, recurrent severe without psychotic features (principal); R45.851 Suicidal ideations; F10.11 Alcohol abuse, in remission; F14.10 Cocaine abuse, uncomplicated; F19.10 Other psychoactive substance abuse, uncomplicated; D63.8 Anemia in other chronic diseases classified elsewhere; E78.5 Hyperlipidemia, unspecified; I10 Essential (primary) hypertension; N40.0 Benign prostatic hyperplasia without lower urinary tract symptoms; I48.0 Paroxysmal atrial fibrillation; Z87.891 Personal history of nicotine dependence; Z79.82 Long term (current) use of aspirin; Z79.899 Other long term (current) drug therapy
CPT/HCPCS: 36415; 80048; 80061; 82607; 82746; 83735; 84439; 84443

== ENCOUNTER → 2022-10-30 19:20 | Outpatient (BNV) | payer MEDICARE, MEDICAID, SELFPAY | PROVIDERS: Admitting Provider Psychiatry & Neurology Psychiatry; Visit Provider Psychiatry & Neurology Psychiatry | DX: F33.2 Major depressive disorder, recurrent severe without psychotic features (principal); F14.10 Cocaine abuse, uncomplicated; F10.91 Alcohol use, unspecified, in remission; F11.90 Opioid use, unspecified, uncomplicated | CPT/HCPCS: 90792; 99231; 99232; 99238 ==

== ENCOUNTER → 2022-10-30 19:20 | Outpatient (BNV) | payer MEDICARE, SELFPAY | PROVIDERS: Admitting Provider Psychiatry & Neurology Psychiatry; Visit Provider Physician Assistant | DX: Z02.2 Encounter for examination for admission to residential institution (principal) | CPT/HCPCS: 99429 ==